=== PATIENT | male | born 1980 | race Caucasian/White ===

== ENCOUNTER 2022-10-22 14:35 | Emergency (ER) | payer SELFPAY ==
--- NOTE | ~2022-10-22 | XR_ITS ---
EXAMINATION: XR ANKLE, LEFT CLINICAL INFORMATION: Status post fall COMPARISON: None TECHNIQUE: AP, lateral, and mortise views of the left ankle. FINDINGS: No acute fracture or dislocation. Ankle mortise is congruent and intact. No ankle joint effusion. Ankle joint space is maintained. Evidence of the pes planus/collapse of the longitudinal arch. Diffuse soft tissue swelling about the ankle and dorsal foot. XR/XR ankle LT min 3V IMPRESSION: 1. No acute fracture or dislocation. 2. Soft tissue swelling about the ankle and dorsal foot. 3. Pes planus.
--- NOTE | ~2022-10-22 | XR_ITS ---
EXAMINATION: XR lumbar spine 2-3V CLINICAL INFORMATION: Reason for Exam s/p fall COMPARISON: None TECHNIQUE: 3 views of the lumbar spine FINDINGS: 5 nonrib-bearing lumbar-type vertebral bodies. Schmorl's nodes in the superior endplates of the L2 and L3 vertebral bodies and the superior and inferior endplates of the L1 vertebral body. Vertebral body heights are otherwise maintained. Mild dextroconvex curvature of the lumbar spine. Disc space heights are maintained. Paravertebral soft tissues are unremarkable. XR/XR lumbar spine 2-3V IMPRESSION: * Schmorl's nodes in the superior endplates of the L2 and L3 vertebral bodies and the superior and inferior endplates of the L1 vertebral body. Vertebral body heights are otherwise maintained.
[2022-10-22 14:50] VITALS: BP 164/93; PULSE 90; O2SAT 100
[2022-10-22 14:51] VITALS: BP 134/79; PULSE 87; RESP 14; TEMP 36.8; BMI 25.2
[2022-10-22 14:56] VITALS: BP 134/79; PULSE 87; RESP 14; TEMP 36.8
--- NOTE | 2022-10-22 16:28 | ED.FALL ---
HPI - Fall General Chief Complaint: Extremity Injury, Lower Stated Complaint: Lower Back Pain per EMS, from [facility] Time Seen by Provider: 10/22/22 16:27 Source: patient Mode of arrival: EMS Limitations: no limitations History of Present Illness HPI Narrative: Patient with history of lower extremity muscular dystrophy unable to ambulate without support, uses wheelchairwent to bathroom all alone by himself went to the shower earlier today while coming or sleep and fell landed on his right side complaining of pain left ankle and lower back no head injury no loss of consciousness no open wound Related Data Previous Rx's Medication Instructions Recorded ibuprofen 600 mg tablet 600 mg PO Q6H PRN fever or pain 10/22/22 #30 tabs Allergies Allergy/AdvReac Type Severity Reaction Status Date / Time No Known Allergies Allergy Verified 10/22/22 16:41 Review of Systems Review of Systems: Yes all other systems are reviewed and are negative [facility] Past Medical History Medical History Muscular dystrophy, congenital Social History Social History Advance Directives: No Advance Directives Information Provided: No Physical Exam Vital Signs: Vital Signs: Last Vital Signs Temp 98.2 F 10/22/22 14:56 Pulse 87 10/22/22 14:56 Resp 14 10/22/22 14:56 BP 134/79 10/22/22 14:56 O2 Del Method 10/22/22 14:56 BMI result Body Mass Index 25.2 Appearance: Alert. Oriented X3. No acute distress. Eyes: No pallor or icterus ENT: Pharynx normal. Oral Mucosa moist Neck: Normal inspection. Neck supple. CVS: Normal heart rate and rhythm. Pulses normal. Respiratory: No respiratory distress. Equal air entry bilateral, no wheezing/rales/rhonchi Abdomen: Soft and nontender. Bowel sounds are present, no mass palpable, no CVA tenderness Skin: Skin warm and dry. Normal skin color. Normal skin turgor. back; diffuse tenderness lumbar spine no focal spinal deformity or tenderness Extremities: Left ankle swelling tender to touch No calf tenderness Neuro: Oriented X 3. Decreased muscle mass lower extremity with minimal movement Medications Administered Discontinued Medications Generic Name Dose Route Start Last Admin Trade Name Freq PRN Reason Stop Dose Admin Ibuprofen 600 mg 12/04/22 19:04 10/22/22 19:18 Ibuprofen 600 Mg Tablet PO 10/22/22 19:05 600 mg ONCE ONE Administration MDM - Fall MDM Narrative Medical decision making narrative: X-ray lumbar spine and left ankle negative for acute fracture will discharge patient back to his home Discharge Plan Discharge Clinical Impression: Ankle sprain and strain, Back pain Patient Disposition: Home, Self-Care Instructions: Acute Low Back Pain (ED), Ankle Strain (ED) Additional Instructions: Take pain medication as advised Care and cautions as advised Prescriptions: New ibuprofen 600 mg tablet 600 mg PO Q6H PRN (Reason: fever or pain) Qty: 30 0RF Interventions: ED Discharge Assessment Last Done: 10/22/22 19:22 Discharge Date/Time: 10/22/22 20:54
[2022-10-22] MEDS: Ibuprofen 600 MG TABLET PO (19:18)
== END 2022-10-22 20:54 | disposition home or self-care (01) ==
PROVIDERS: Emergency Provider Internal Medicine
DX: M54.50 Low back pain, unspecified (principal); M25.572 Pain in left ankle and joints of left foot; M25.571 Pain in right ankle and joints of right foot
CPT/HCPCS: 72100; 73610; 99283